=== PATIENT | male | born 1945 | race Caucasian/White ===

== ENCOUNTER 2017-09-26 22:18 | Emergency (ER) | payer MEDICARE, OTHER ==
--- NOTE | 2017-09-26 22:35 | ED Physician Documentation ---
PD HPI ABD PAIN - Stated complaint Stated Complaint: STOMACH PX/BATISTA - Chief complaint Chief Complaint: Abd Pain - History obtained from History obtained from: Patient - History of Present Illness Timing - onset: Enter time (05:00), Today Timing - details: Abrupt onset, Waxing and waning Quality: Cramping Location: All over / everywhere Improved by: Other (no ameliorating factors) Worsened by: Other (no exacerbating factors) Associated symptoms: Nausea, Vomiting, Diarrhea. No: Fever Similar symptoms before: Has not had sx before Review of Systems Constitutional: reports: Reviewed and negative Cardiac: reports: Reviewed and negative Respiratory: reports: Reviewed and negative GI: reports: Abdominal Pain, Nausea, Vomiting, Diarrhea PD PAST MEDICAL HISTORY - Past Medical History Cardiovascular: High cholesterol Respiratory: Sleep apnea Endocrine/Autoimmune: None GI: GERD : Benign prostate hypertrophy, Retention, Kidney stones HEENT: None Psych: None Musculoskeletal: Osteoarthritis Derm: None - Past Surgical History General: Colonoscopy Ortho: Arthroscopic surgery - Present Medications Home Medications: Ambulatory Orders Medication Instructions Recorded Confirmed Finasteride [Proscar] 10 mg PO DAILY 02/09/13 02/09/13 Flaxseed Oil [Flaxseed] 1,000 mg PO DAILY 02/09/13 02/09/13 Gluc Gutierrez/Chondro Gutierrez A/Vit C/Mn 1 each PO DAILY 02/09/13 02/09/13 [Glucosamine 1,500 Complex Cp] Simvastatin [Zocor] 10 mg PO DAILY 02/09/13 02/09/13 Tamsulosin [Flomax] 0.4 mg PO DAILY 02/09/13 02/09/13 Vitamin E 400 unit PO DAILY 02/09/13 02/09/13 Ondansetron Odt [Zofran] 4 mg TL Q6H PRN #10 tablet 09/27/17 - Allergies Allergies/Adverse Reactions: Allergies Allergy/AdvReac Type Severity Reaction Status Date / Time fentanyl AdvReac Intermediate Emesis Verified 09/26/17 22:27 midazolam HCl * [From Versed] AdvReac Intermediate Emesis Verified 09/26/17 22: 27 PD ED PE NORMAL - Vitals Vital signs reviewed: Yes - General General: Alert and oriented X 3, No acute distress, Well developed/nourished - HEENT HEENT: Other (tacky mucous membranes) - Neck Neck: Supple, no meningeal sign - Cardiac Cardiac: RRR, No murmur - Respiratory Respiratory: No respiratory distress, Clear bilaterally - Abdomen Abdomen: Normal bowel sounds, Soft, Non tender, Non distended, No organomegaly - Back Back: No CVA TTP Results - Vitals Vitals: Vital Signs - 24 hr 09/27/17 00:20 Heart Rate 73 Respiratory 15 Rate Blood Pressure 126/70 O2 Saturation 94 Oxygen O2 Source Room air - Labs Labs: Laboratory Tests 09/26/17 09/26/17 22:30 22:30 WBC 10.9 H RBC 4.96 Hgb 15.3 Hct 44.7 MCV 90.1 MCH 30.8 MCHC 34.2 RDW 13.3 Plt Count 206 MPV 7.7 Neut # 9.9 H Lymph # 0.3 L [place] # 0.6 Eos # 0.1 Baso # 0.1 Absolute Nucleated RBC 0.03 Nucleated RBC % 0.2 Sodium 138 Potassium 3.5 Chloride 105 Carbon Dioxide 21 Anion Gap 12.0 BUN 22 H Creatinine 0.8 Estimated GFR (MDRD) 95 Glucose 131 H Calcium 8.9 Total Bilirubin 1.5 H AST 22 ALT 20 Alkaline Phosphatase 61 Total Protein 7.4 Albumin 4.1 Globulin 3.3 Albumin/Globulin Ratio 1.2 Lipase 18 L PD MEDICAL DECISION MAKING - ED course Complexity details: reviewed results, re-evaluated patient, considered differential, d/w patient ED course: on reexamination, patient reports significant improvement after IV fluids and zofran. Departure - Departure Disposition: 01 Home, Self Care Clinical Impression: Gastroenteritis Condition: Good Instructions: ED Gastroenteritis Viral Follow-Up: Jeniffer Crocker MD [Primary Care Provider] - Prescriptions: Ondansetron Odt [Zofran] 4 mg TL Q6H PRN #10 tablet PRN Reason: Nausea / Vomiting Discharge Date/Time: 09/27/17 01:00
[2017-09-26 22:36] LABS: BASOPHILS # (AUTO) 0.1 10^3/uL (0.0-0.1); BASOPHILS % (AUTO) 0.5 %; EOSINOPHILS # (AUTO) 0.1 10^3/uL (0.0-0.7); EOSINOPHILS % (AUTO) 0.5 %; HGB - HEMOGLOBIN 15.3 g/dL (14.0-18.0); LYMPHOCYTES # (AUTO) 0.3 10^3/uL (1.5-3.5); LYMPHOCYTES % (AUTO) 3.2 %; MEAN CORPUSCULAR HEMOGLOBIN 30.8 pg (27.0-31.0); MEAN CORPUSCULAR HGB CONC 34.2 g/dL (32.0-36.0); MEAN CORPUSCULAR VOLUME 90.1 fL (80.0-94.0); MEAN PLATELET VOLUME 7.7 fL (7.4-11.4); MONOCYTES # (AUTO) 0.6 10^3/uL (0.0-1.0); MONOCYTES % (AUTO) 5.3 %; NEUTROPHILS # (AUTO) 9.9 10^3/uL (1.5-6.6); NEUTROPHILS % (AUTO) 90.5 %; PLT - PLATELET COUNT 206 10^3/uL (130-450); RED BLOOD COUNT 4.96 10^6/uL (4.70-6.10); RED CELL DISTRIBUTION WIDTH 13.3 % (12.0-15.0); WHITE BLOOD COUNT 10.9 x10^3/uL (4.8-10.8)
[2017-09-26 22:49] LABS: ALBUMIN 4.1 g/dL (3.2-5.5); ALBUMIN/GLOBULIN RATIO 1.2 (1.0-2.2); BILIRUBIN,TOTAL 1.5 mg/dL (0.2-1.0); CALCIUM 8.9 mg/dL (8.5-10.3); CREATININE 0.8 mg/dL (0.6-1.2); TOTAL PROTEIN 7.4 g/dL (6.7-8.2)
[2017-09-26] MEDS ORDERED: SODIUM CHLORIDE 0.9% 1,000 ML IV STA (23:10)
[2017-09-26] MEDS ORDERED: ONDANSETRON 4 MG/2 ML VIAL IVP STA (23:10)
[2017-09-27 00:21] VITALS: BP 126/70
[2017-09-27] MEDS ORDERED: ONDANSETRON ODT 4 MG Prepack 2 TL STA (00:45)
== END 2017-09-27 01:00 | disposition home or self-care (01) ==
LOC: ED 22:18
DX: K52.9 Noninfective gastroenteritis and colitis, unspecified (principal); E78.00 Pure hypercholesterolemia, unspecified
CPT/HCPCS: 36415; 80053; 83690; 85025; 96360; 99283